=== PATIENT | female | born 1960 | race Caucasian/White ===

== ENCOUNTER 2020-10-07 14:28 | Outpatient (CLI) | payer BC, SELFPAY ==
--- NOTE | 2020-10-07 14:37 | ECHO_ITS ---
Patient Info Name: Magali Morris Age: 60 years : 1960 Gender: Female Ht: 64 in Wt: 139 lbs BSA: 1.70 m2 HR: 57 bpm BP: 111 / 71 mmHg Heart Rhythm: Bradycardia Technical Quality: Good Exam Date: 10/07/2020 2:41 PM Exam Location: [facility] Patient Status: Outpatient Admit Date: 10/07/2020 Staff Ordering Physician: Cecy Castillo NP Specialty Development Consultant: Estephaine Florentino RDCS Attending Provider: Cecy Castillo NP Exam Type: CA echo doppler color flow Study Info Indications - non rheumatic aortic valve stenosis Complete two-dimensional, color flow and Doppler transthoracic echocardiogram is performed. Summary 1. Complete two-dimensional, color flow and Doppler transthoracic echocardiogram is performed. 2. Left ventricular chamber size, wall thickness, systolic and diastolic function are normal with no regional wall motion abnormalities with an estimated ejection fraction of 65-70%. Global longitudinal strain is also normal at-19%. 3. No pulmonary hypertension, estimated pulmonary arterial systolic pressure is 30 mmHg. 4. There is trace tricuspid and pulmonic valve regurgitation. 5. The aortic valve is trileaflet and appears normal. 6. Normal sinus rhythm. Left Ventricle Left ventricular chamber dimension is normal. Left ventricular systolic function is normal, estimated at 65-70%. There is no increased left ventricular wall thickness. Left ventricular septal wall motion is normal. The left ventricular diastolic function is normal. Left ventricular chamber size, wall thickness, systolic and diastolic function are normal with no regional wall motion abnormalities with an estimated ejection fraction of 65-70%. Global longitudinal strain is also normal at-19%. Right Ventricle Right ventricular chamber dimension is normal. Right ventricular systolic function is normal. Left Atria Left atrial chamber dimension is normal. Right Atria Right atrial chamber dimension is normal. Aortic Valve The aortic valve is trileaflet and appears normal. There is no aortic valve sclerosis. There is no aortic valve stenosis. There is no aortic valve regurgitation. Pulmonic Valve The pulmonic valve is normal. There is no pulmonic valve stenosis. There is trace pulmonic regurgitation. Mitral Valve The mitral valve has normal leaflets. There is no mitral valve stenosis. There is no mitral valve regurgitation. Tricuspid Valve The tricuspid valve leaflets are normal. There is no significant tricuspid valve stenosis. There is trace tricuspid and pulmonic valve regurgitation. No pulmonary hypertension, estimated pulmonary arterial systolic pressure is 30 mmHg. Pericardium/Pleural The pericardium appears normal. There is no pericardial effusion. Inferior Vena Cava Normal inferior vena cava with >50% collapse upon inspiration consistent with Empty right atrial pressure, 10 mmHg. Aorta The aortic root size at the sinus of Valsalva is normal. The prox ascending aorta size is normal. Left Ventricular Outflow Tract Name Value Normal LVOT 2D LVOT Diameter 2.0 cm LVOT Doppler LVOT Peak Grad
== END 2020-10-07 14:29 | disposition home or self-care (01) ==
LOC: ANHCARD 14:30
PROVIDERS: PCP Family Medicine; Visit Provider Nurse Practitioner Family
DX: I35.0 Nonrheumatic aortic (valve) stenosis (principal); I34.0 Nonrheumatic mitral (valve) insufficiency; I10 Essential (primary) hypertension
CPT/HCPCS: 93306

== ENCOUNTER → 2021-05-27 12:52 | Outpatient (CLI) | payer BC, SELFPAY ==
--- NOTE | ~2021-05-27 | MM_ITS ---
EXAMINATION: MM screening [facility] BI w chaya HISTORY: Screening mammogram TECHNIQUE: Craniocaudal and mediolateral oblique 3-D tomosynthesis images were obtained and synthetic 2-D images were generated. CAD analysis was submitted and interpreted. COMPARISON: None, baseline BREAST PARENCHYMAL COMPOSITION: The breasts are heterogeneously dense, which may obscure small masses . FINDINGS: RIGHT BREAST: There is a possible mass in the posterior third of the lower inner breast best apprecia rhonda 6 cm from the nipple on craniocaudal tomosynthesis image 13/. LEFT BREAST: An asymmetry is present in the posterior third of the lower breast 7.5 cm from the nippl e on the mediolateral oblique view. IMPRESSION: 1. Bilateral breast findings as above. 2. Additional mammographic views and possible breast ultrasound are recommended. BI-RADS Category 0: Incomplete: Needs additional imaging evaluation. Reviewed, dictated and finalized at location A. IAL INSPECTOR IMPRESSION: 1. Bilateral breast findings as above. 2. Additional mammographic views and possible breast ultrasound are recommended . BI-RADS Category 0: Incomplete: Needs additional imaging evaluation.
== END ==
PROVIDERS: PCP Family Medicine; Visit Provider Nurse Practitioner Family
DX: Z12.31 Encounter for screening mammogram for malignant neoplasm of breast (principal); R92.8 Other abnormal and inconclusive findings on diagnostic imaging of breast
CPT/HCPCS: 77063; 77067

== ENCOUNTER 2021-06-15 13:46 | Outpatient (CLI) | payer BC, SELFPAY ==
--- NOTE | ~2021-06-15 | MMUS_ITS ---
EXAMINATION: MM diagnostic [facility] BI w chaya, US breast BI complete HISTORY: Follow-up breast asymmetries TECHNIQUE: Additional 3-D tomosynthesis images of the breasts were performed and synthetic 2-D images were generated. CAD analysis was submitted and interpreted. High resolution complete bilateral breas t ultrasound was performed. COMPARISON: 05/27/2021 BREAST PARENCHYMAL COMPOSITION: The breasts are heterogenously dense, which may obscure small masses FINDINGS: MAMMOGRAPHIC FINDINGS: There are no suspicious masses, calcifications or architectural distortion in either breast to sugges t malignancy. ULTRASOUND: Complete bilateral US of all 4 quadrants of the breasts and retroareolar region was reviewed. Normal heterogeneous echotexture without focal solid or cystic mass in either breast. IMPRESSION: 1. No evidence for malignancy in either breast. 2. Routine yearly screening mammogram and regular clinical breast examination are recommended. BI-RADS Category 1: Negative Reviewed, dictated and finalized at location A. UNT RECEIVABLE ASSOCIATE IMPRESSION: 1. No evidence for malignancy in either breast. 2. Routine yearly screening mammogram and regular clinical breast examination a re recommended. BI-RADS Category 1: Negative
== END 2021-06-15 13:47 | disposition home or self-care (01) ==
LOC: ANHIMG 13:49
PROVIDERS: PCP Family Medicine; Visit Provider Family Medicine
DX: R92.8 Other abnormal and inconclusive findings on diagnostic imaging of breast (principal)
CPT/HCPCS: 76641; 77062; 77066; G0279

== ENCOUNTER 2023-02-23 14:04 | Outpatient (CLI) | payer BC, SELFPAY ==
--- NOTE | ~2023-02-23 | MM_ITS ---
EXAMINATION: MM screening [facility] BI w chaya HISTORY: Screening TECHNIQUE: Craniocaudal and mediolateral oblique 3-D tomosynthesis images were obtained and synthetic 2-D images were generated. CAD analysis was submitted and interpreted. COMPARISON: Comparison to multiple prior studies sequentially, with oldest reviewed study dated 05/06. BREAST PARENCHYMAL COMPOSITION: The breasts are heterogeneously dense, which may obscure small masses . FINDINGS: There is no evidence of suspicious mass, calcification, or architectural distortion to sugg est malignancy in either breast. There has been no suspicious interval change. IMPRESSION: 1. No mammographic evidence of malignancy. 2. Recommend routine screening mammography in one year. BI-RADS Category 1: Negative Reviewed, dictated and finalized at location A.
== END 2023-02-23 14:05 | disposition home or self-care (01) ==
PROVIDERS: PCP Family Medicine; Visit Provider Nurse Practitioner Family
DX: Z12.31 Encounter for screening mammogram for malignant neoplasm of breast (principal)
CPT/HCPCS: 77063; 77067

== ENCOUNTER 2023-03-02 01:03 | Day surgery (SDC) | payer BC, SELFPAY ==
[2023-02-02 13:55] VITALS: BMI 23.1
[2023-03-02 11:07] VITALS: BMI 21.8
[2023-03-02 11:11] VITALS: BP 133/101; PULSE 61; RESP 20; TEMP 36.4; O2SAT 99
[2023-03-02] MEDS: LACTATED RINGERS 1,000 ML 150 ML IV CONT (11:13)
--- NOTE | 2023-03-02 11:26 | WPDANESEPPF ---
Anes - Initial Pre Proc Eval Procedure: Operation Date: 03/02/23 12:30 Proposed Procedures p Screening Colonoscopy - Timmy Null MD Date/Time: 03/02/23 11:26 Surgeon: Timmy Null MD Pre Op Diagnosis: neoplasm screening Patient Data Age: 63 Gender: F Height: 1.63 m Weight: 57.6 kg Last Vital Signs Temp 97.6 F 03/02/23 11:11 Pulse 61 03/02/23 11:11 Resp 20 03/02/23 11:11 BP 133/101 H 03/02/23 11:11 Pulse Ox 99 03/02/23 11:11 O2 Del Method Room Air 03/02/23 11:11 Allergies Allergy/AdvReac Type Severity Reaction Status Date / Time No Known Allergies Allergy Verified 03/02/23 11:08 Home Medications Medication Instructions Recorded Confirmed Type calcium carbonate 500 mg calcium 500 mg PO DAILY 05/01/19 03/02/23 History (1,250 mg) tablet (Calcium 500) cholecalciferol (vitamin D3) 25 1,000 unit PO DAILY 06/18/19 03/02/23 History mcg (1,000 unit) capsule multivitamin 1 tablet PO DAILY 10/01/20 03/02/23 History vitamin B complex (B 1 tablet PO DAILY 12/23/21 03/02/23 History Complex-Vitamin B12 tablet) lisinopril 10 mg tablet 10 mg PO . q.a.m. #90 tabs 01/11/23 03/02/23 Rx Patient hx anesthesia problems: none Family hx anesthesia problems: none Results Review: All pre-operative results and documents have been reviewed as part of the pre-operative evaluation. [facility] Past Medical History Medical History (Updated 02/23/23 @ 17:50 by All Calixto MD) Aortic stenosis, mild BMI 22.0-22.9, adult Breast asymmetry Breast cancer screening Mammogram normal 02/23/2023 with recheck annually. Breast mass in female diagnostic mammogram and breast ultrasound negative for malignancy 06/15/2021 with routine follow-up mammograms advised Elevated BP without diagnosis of hypertension Essential (primary) hypertension Heart murmur on physical examination Microscopic hematuria urinalysis completely normal on 11/24/2022. Mitral regurgitation Vitamin B12 deficiency (11/24/22) Level slightly low at 390 with goal greater than 400 with hemoglobin 14.0 on 11/24/2022. Surgical History Surgical History History of right knee surgery Family History Family History (Updated 07/14/16 @ 14:52 by DOCTOR UNKNOWN) Father Cerebrovascular accident Social History Social History (Updated 11/30/22 @ 08:36 by Kelley Lindsay MA) Smoking status: Never smoker Alcohol intake: never Substance use: never Substance use type: does not use Current Housing: Decline to Answer Concerned About Future Housing: Decline to Answer Difficulty Paying Gas/Electric Bills: Decline to Answer Difficulty Paying for Meds: Decline to Answer Currently Unemployed: Decline to Answer Education: Decline to Answer Difficulty w/ Childcare or Family Care: Decline to Answer Living arrangements: with family Spiritual care concerns: No Anes - Eval Final PreProcedure Day of Procedure 03/02/23 11:26 Patient weight: normal Heart: regular rate and rhythm Lungs: clear to auscultation Airway: Mallampati scale class II Neurological: alert and oriented Last oral intake: >/= 8 hours ASA classification: II Emergent: no Anesthetic plan: proceed Results Review: All pre-operative results and documents have been reviewed as part of the pre-operative evaluation. Informed Consent: The patient's anesthetic plan and its attendant risks and benefits were discussed with the patient/family/POA. Questions were solicited and answers provided to the satisfaction of the patient/family/POA.
--- NOTE | 2023-03-02 11:38 | PM.HPGS ---
History of Present Illness History of Present Illness Consent: Risks, benefits, and alternatives have been discussed and questions answered. Patient agrees to proceed with procedure. Chief complaint: neoplasm screening Narrative: Magali Morris is a 63 year old female Presents for screening colonoscopy. Patient's current weight appetite and bowel movements are normal. She denies abdominal pain. She has had no bleeding. Family history noncontributory. Several years ago had negative screening Cologuard test. Review of Systems Review of Systems: Review of systems noncontributory. [facility] Past Medical History Medical History (Updated 02/23/23 @ 17:50 by All Calixto MD) Aortic stenosis, mild BMI 22.0-22.9, adult Breast asymmetry Breast cancer screening Mammogram normal 02/23/2023 with recheck annually. Breast mass in female diagnostic mammogram and breast ultrasound negative for malignancy 06/15/2021 with routine follow-up mammograms advised Elevated BP without diagnosis of hypertension Essential (primary) hypertension Heart murmur on physical examination Microscopic hematuria urinalysis completely normal on 11/24/2022. Mitral regurgitation Vitamin B12 deficiency (11/24/22) Level slightly low at 390 with goal greater than 400 with hemoglobin 14.0 on 11/24/2022. Surgical History Surgical History History of right knee surgery Family History Family History (Updated 07/14/16 @ 14:52 by DOCTOR UNKNOWN) Father Cerebrovascular accident Social History Social History (Updated 11/30/22 @ 08:36 by Kelley Lindsay MA) Smoking status: Never smoker Alcohol intake: never Substance use: never Substance use type: does not use Current Housing: Decline to Answer Concerned About Future Housing: Decline to Answer Difficulty Paying Gas/Electric Bills: Decline to Answer Difficulty Paying for Meds: Decline to Answer Currently Unemployed: Decline to Answer Education: Decline to Answer Difficulty w/ Childcare or Family Care: Decline to Answer Living arrangements: with family Spiritual care concerns: No Meds Home Medications and Allergies Home Medications Medication Instructions Recorded Confirmed Type calcium carbonate 500 mg calcium 500 mg PO DAILY 05/01/19 03/02/23 History (1,250 mg) tablet (Calcium 500) cholecalciferol (vitamin D3) 25 1,000 unit PO DAILY 06/18/19 03/02/23 History mcg (1,000 unit) capsule multivitamin 1 tablet PO DAILY 10/01/20 03/02/23 History vitamin B complex (B 1 tablet PO DAILY 12/23/21 03/02/23 History Complex-Vitamin B12 tablet) lisinopril 10 mg tablet 10 mg PO . q.a.m. #90 tabs 01/11/23 03/02/23 Rx Allergies Allergy/AdvReac Type Severity Reaction Status Date / Time No Known Allergies Allergy Verified 03/02/23 11:08 Vital Signs Vital Signs - 24 hr 03/02/23 11:11 Temperature 97.6 F Pulse Rate 61 Respiratory Rate 20 Blood Pressure 133/101 H Pulse Oximetry 99 Oxygen Delivery Room Air Exam Narrative: Physical exam reveals patient to be alert. Vital signs stable. HEENT exam is unremarkable. Patient is anicteric. Lungs are clear to auscultation and percussion. Heart is without murmur or extra sounds. Abdomen bowel sounds are present soft nontender with no organomegaly. Digital external rectal exam normal. Assessment and Plan Assessment and plan (1) Colon cancer screening: Code(s): Z12.11 - Encounter for screening for malignant neoplasm of colon Status: Acute Assessment and Plan: Patient presents for screening colonoscopy. She appears to be at average risk for colon polyps. Further recommendations may be given after endoscopy.
[2023-03-02] MEDS: SIMETHICONE ORAL SUSPENSION 20 MG/0.3 ML 30 ML BOTTLE 0.6 ML IRRIGATION (12:27)
[2023-03-02 12:37] VITALS: BP 108/68; PULSE 63; RESP 21; O2SAT 97
[2023-03-02 12:47] VITALS: BP 114/78; PULSE 64; RESP 20; O2SAT 99
[2023-03-02 12:57] VITALS: BP 122/88; PULSE 60; RESP 21; O2SAT 100
== END 2023-03-02 13:30 | disposition home or self-care (01) ==
PROVIDERS: PCP Family Medicine; Visit Provider Internal Medicine Gastroenterology
PROC: 0DJD8ZZ Inspection of Lower Intestinal Tract, Via Natural or Artificial Opening Endoscopic (ICD-10-PCS; CPT 45378; principal; 2023-03-02 12:30)
DX: Z12.11 Encounter for screening for malignant neoplasm of colon (principal); K57.30 Diverticulosis of large intestine without perforation or abscess without bleeding; I10 Essential (primary) hypertension; E53.8 Deficiency of other specified B group vitamins
CPT/HCPCS: 45378; J2704; J7120

== ENCOUNTER 2024-02-26 08:16 | Outpatient (CLI) | payer BC, SELFPAY ==
--- NOTE | ~2024-02-26 | MM_ITS ---
EXAMINATION: MM screening [facility] BI w chaya HISTORY: Screening TECHNIQUE: Craniocaudal and mediolateral oblique 3-D tomosynthesis images were obtained and synthetic 2-D images were generated. CAD analysis was submitted and interpreted. COMPARISON: Comparison to multiple prior studies sequentially, with oldest reviewed study dated 05/06. BREAST PARENCHYMAL COMPOSITION: Dense: The breasts are heterogeneously dense, which may obscure small masses FINDINGS: There are asymmetries in the lower inner quadrant of the right breast anteriorly. The left breast is stable. No new masses, calcifications or architectural distortion. IMPRESSION: 1. Right breast asymmetries in the lower inner quadrant. 2. Additional mammographic views and possible breast ultrasound are recommended. BI-RADS Category 0: Incomplete: Needs additional imaging evaluation. Reviewed, dictated and finalized at location B. IMPRESSION: 1. Right breast asymmetries in the lower inner quadrant. 2. Additional mammographic views and possible breast ultrasound are recommended . BI-RADS Category 0: Incomplete: Needs additional imaging evaluation.
== END 2024-02-26 08:17 | disposition home or self-care (01) ==
LOC: CHSIMG 08:17
PROVIDERS: PCP Family Medicine; Visit Provider Family Medicine
DX: Z12.31 Encounter for screening mammogram for malignant neoplasm of breast (principal); R92.8 Other abnormal and inconclusive findings on diagnostic imaging of breast
CPT/HCPCS: 77063; 77067

== ENCOUNTER 2024-03-14 09:32 | Outpatient (CLI) | payer BC, SELFPAY ==
--- NOTE | ~2024-03-14 | MM_ITS ---
EXAMINATION: MM diagnostic [facility] RT w chaya HISTORY: Right breast asymmetry TECHNIQUE: Additional 3-D tomosynthesis images of the right breast were performed and synthetic 2-D i mages were generated. CAD analysis was submitted and interpreted. COMPARISON: 02/26/2024, 02/23/2023, 06/15/2021 BREAST PARENCHYMAL COMPOSITION:Dense: The breasts are heterogeneously dense, which may obscure small masses. FINDINGS: There is effacement of the area of asymmetry at the lower, inner right breast with spot com pression. No suspicious mass lesion or distortion seen. No suspicious pelvic or calcification. IMPRESSION: No mammographic evidence for malignancy. BI-RADS Category 1: Negative Reviewed, dictated and finalized at location .
== END 2024-03-14 09:33 | disposition home or self-care (01) ==
LOC: CHSIMG 09:32
PROVIDERS: PCP Family Medicine; Visit Provider Family Medicine
DX: N64.89 Other specified disorders of breast (principal)
CPT/HCPCS: 77061; 77065; G0279